=== PATIENT | female | born 1935 | race Caucasian/White ===

== ENCOUNTER → 2017-09-30 | Outpatient (CLI) | payer OTHER ==
[~2017-09-30] MED LIST: ATENOLOL25 MG PO; VITAMIN B1250 MCG PO; VITAMIN D-32000 UNI1 PO
== END ==
LOC: RAD 12:51
DX: M25.561 Pain in right knee (principal); R29.6 Repeated falls; R25.2 Cramp and spasm

== ENCOUNTER → 2019-03-25 | Outpatient (CLI) | payer OTHER ==
[2019-03-25 14:56] LABS: HEMATOCRIT 43.5 % (37.0-47.0); HEMOGLOBIN 14.7 g/dl (12.0-16.0); MEAN CELL VOLUME 91.4 fl (81.0-99.0); MEAN CORPUSCULAR HGB 30.9 pg (27.0-31.0); MEAN CORPUSCULAR HGB CONC 33.8 g/dl (33.0-37.0); MEAN PLATELET VOLUME 10.9 fl (9.6-12.3); RED BLOOD COUNT 4.76 10*6/uL (4.10-5.10); RED CELL DISTRI WIDTH 12.6 % (0-14.5); WHITE BLOOD COUNT 7.7 10*3/uL (4.8-10.8)
[2019-03-25 15:15] LABS: ALBUMIN 3.6 gm/dl (3.1-4.5); CREATININE 1.1 mg/dL (0.55-1.02); POTASSIUM 3.5 mmol/L (3.5-5.1); TOTAL PROTEIN 7.4 gm/dL (6.4-8.2)
[2019-03-25 15:39] LABS: VITAMIN D, 25-HYDROXY 26.6 ng/mL (30-100)
== END | disposition home or self-care (01) ==
LOC: LAB 13:53
PROVIDERS: Family Medicine
DX: Z13.220 Encounter for screening for lipoid disorders (principal); I10 Essential (primary) hypertension; E55.9 Vitamin D deficiency, unspecified; R53.83 Other fatigue

== ENCOUNTER → 2019-06-03 | Outpatient (CLI) | payer OTHER | END | disposition home or self-care (01) | LOC: MAMMO 09:04 | DX: Z12.31 Encounter for screening mammogram for malignant neoplasm of breast (principal) ==

== ENCOUNTER → 2019-06-25 | Outpatient (CLI) | payer OTHER ==
[2019-06-25 11:33] LABS: HEMATOCRIT 46.6 % (37.0-47.0); HEMOGLOBIN 15.4 g/dl (12.0-16.0); MEAN CORPUSCULAR HGB 30.1 pg (27.0-31.0); RED BLOOD COUNT 5.12 10*6/uL (4.10-5.10); RED CELL DISTRI WIDTH 12.5 % (0-14.5); WHITE BLOOD COUNT 7.3 10*3/uL (4.8-10.8)
[2019-06-25 11:58] LABS: ALBUMIN 3.9 gm/dl (3.1-4.5); CREATININE 1.12 mg/dL (0.55-1.02); POTASSIUM 3.9 mmol/L (3.5-5.1); TOTAL PROTEIN 7.5 gm/dL (6.4-8.2)
== END | disposition home or self-care (01) ==
LOC: LAB 10:39
PROVIDERS: Nurse Practitioner Family
DX: I12.9 Hypertensive chronic kidney disease with stage 1 through stage 4 chronic kidney disease, or unspecified chronic kidney disease (principal); N18.3 Chronic kidney disease, stage 3 (moderate); E78.00 Pure hypercholesterolemia, unspecified; E55.9 Vitamin D deficiency, unspecified

== ENCOUNTER → 2019-06-29 | Outpatient (CLI) | payer OTHER | END | disposition home or self-care (01) | LOC: MAMMO 12:58 | DX: N63.22 Unspecified lump in the left breast, upper inner quadrant (principal) ==

== ENCOUNTER → 2019-07-08 | Day surgery (SDC) | payer OTHER ==
[2019-07-08 10:24] LABS: ACT PARTIAL THROMBO TIME 27.3 SECONDS (20.0-32.1); INTERNATIONAL NORM RATIO 0.9 (2.0-3.5)
== END | disposition home or self-care (01) ==
LOC: SDC 00:09 → RAD 11:00 → SDC 11:00 → US 11:00 → SDC 13:00
PROVIDERS: Nurse Practitioner Family
DX: C50.412 Malignant neoplasm of upper-outer quadrant of left female breast (principal)

== ENCOUNTER → 2020-05-24 | Outpatient (CLI) | payer OTHER ==
[2020-05-24 13:11] LABS: HEMATOCRIT 46.3 % (37.0-47.0); MEAN CELL VOLUME 89.9 fl (81.0-99.0); MEAN CORPUSCULAR HGB 29.7 pg (27.0-31.0); MEAN PLATELET VOLUME 10.3 fl (9.6-12.3); RED BLOOD COUNT 5.15 10*6/uL (4.10-5.10); RED CELL DISTRI WIDTH 12.6 % (0-14.5)
[2020-05-24 13:29] LABS: ALBUMIN 3.7 gm/dl (3.1-4.5); CREATININE 1.18 mg/dL (0.55-1.02); POTASSIUM 3.9 mmol/L (3.5-5.1); TOTAL PROTEIN 7.5 gm/dL (6.4-8.2)
[2020-05-24 13:36] LABS: THYROID STIM HORMONE (HS) 3.4 uIU/ml (0.358-4.75)
[2020-05-24 14:38] LABS: VITAMIN D, 25-HYDROXY 15.2 ng/mL (30-100)
== END | disposition home or self-care (01) ==
LOC: LAB 12:13
PROVIDERS: ATTEND Family Medicine
DX: Z13.220 Encounter for screening for lipoid disorders (principal); I10 Essential (primary) hypertension; E55.9 Vitamin D deficiency, unspecified; R53.83 Other fatigue; R41.3 Other amnesia; C50.919 Malignant neoplasm of unspecified site of unspecified female breast

== ENCOUNTER → 2020-09-20 | Outpatient (CLI) | payer OTHER ==
[2020-09-20 12:06] LABS: HEMATOCRIT 44.9 % (37.0-47.0); MEAN CELL VOLUME 90.7 fl (81.0-99.0); MEAN CORPUSCULAR HGB 30.3 pg (27.0-31.0); MEAN CORPUSCULAR HGB CONC 33.4 g/dl (33.0-37.0); MEAN PLATELET VOLUME 10.2 fl (9.6-12.3); RED BLOOD COUNT 4.95 10*6/uL (4.10-5.10); RED CELL DISTRI WIDTH 13.2 % (0-14.5); WHITE BLOOD COUNT 7.8 10*3/uL (4.8-10.8)
[2020-09-20 12:37] LABS: ALBUMIN 3.4 gm/dl (3.1-4.5); CREATININE 1.12 mg/dL (0.55-1.02)
[2020-09-20 12:38] LABS: TOTAL PROTEIN 7.3 gm/dL (6.4-8.2)
== END | disposition home or self-care (01) ==
LOC: LAB 11:43
PROVIDERS: ATTEND Family Medicine
DX: I10 Essential (primary) hypertension (principal); E74.9 Disorder of carbohydrate metabolism, unspecified; E78.00 Pure hypercholesterolemia, unspecified; E55.9 Vitamin D deficiency, unspecified; Z79.899 Other long term (current) drug therapy; J02.8 Acute pharyngitis due to other specified organisms

== ENCOUNTER → 2021-02-02 | Outpatient (CLI) | payer OTHER ==
[2021-02-02 12:41] LABS: HEMATOCRIT 46.1 % (37.0-47.0); MEAN CORPUSCULAR HGB 30.7 pg (27.0-31.0); MEAN CORPUSCULAR HGB CONC 33.4 g/dl (33.0-37.0); MEAN PLATELET VOLUME 10.9 fl (9.6-12.3); RED BLOOD COUNT 5.01 10*6/uL (4.10-5.10); WHITE BLOOD COUNT 8.2 10*3/uL (4.8-10.8)
[2021-02-02 12:57] LABS: ALBUMIN 3.7 gm/dl (3.1-4.5); ALKALINE PHOSPHATASE 53 U/L (45-117); BUN 11 mg/dl (7-24); CHLORIDE 107 mmol/L (98-107); CHOLESTEROL 229 mg/dL (<200); LDL CHOLESTEROL 122 mg/dL (9-159); POTASSIUM 3.8 mmol/L (3.5-5.1); SGOT/AST 13 IU/L (3-35); SGPT/ALT 18 U/L (12-78); SODIUM 141 mmol/L (136-145); TOTAL PROTEIN 7.4 gm/dL (6.4-8.2); TRIGLYCERIDES 126 mg/dl (<150)
== END | disposition home or self-care (01) ==
LOC: LAB 12:00
PROVIDERS: ATTEND Family Medicine
DX: E78.00 Pure hypercholesterolemia, unspecified (principal); I10 Essential (primary) hypertension; E74.9 Disorder of carbohydrate metabolism, unspecified; Z79.899 Other long term (current) drug therapy

== ENCOUNTER → 2021-04-24 | Outpatient (CLI) | payer OTHER | END | disposition home or self-care (01) | LOC: RAD 15:59 | PROVIDERS: ATTEND Family Medicine | DX: M25.562 Pain in left knee (principal) ==

== ENCOUNTER → 2021-08-24 | Outpatient (CLI) | payer MEDICARE ==
[2021-08-24 10:04] LABS: HEMATOCRIT 45.5 % (37.0-47.0); MEAN CELL VOLUME 89.9 fl (81.0-99.0); MEAN CORPUSCULAR HGB 30.8 pg (27.0-31.0); MEAN CORPUSCULAR HGB CONC 34.3 g/dl (33.0-37.0); MEAN PLATELET VOLUME 10.3 fl (9.6-12.3); RED BLOOD COUNT 5.06 10*6/uL (4.10-5.10); WHITE BLOOD COUNT 7.4 10*3/uL (4.8-10.8)
[2021-08-24 10:34] LABS: BUN 14 mg/dl (7-24); CHLORIDE 106 mmol/L (98-107); CHOLESTEROL 227 mg/dL (<200); CREATININE 1.01 mg/dL (0.55-1.02); POTASSIUM 4.1 mmol/L (3.5-5.1); SGOT/AST 16 IU/L (3-35); SGPT/ALT 15 U/L (12-78); SODIUM 140 mmol/L (136-145)
[2021-08-24 10:41] LABS: ALKALINE PHOSPHATASE 50 U/L (45-117); FREE T4 1.06 ng/dl (0.76-1.46); LDL CHOLESTEROL 129 mg/dL (9-159); TOTAL PROTEIN 7.5 gm/dL (6.4-8.2); TRIGLYCERIDES 121 mg/dl (<150)
[2021-08-24 11:08] LABS: VITAMIN D, 25-HYDROXY 15.6 ng/mL (30-100)
[2021-08-25 04:06] LABS: HEP B CORE AB, IGM Negative (Negative); HEPATITIS B SURFACE AG Negative (Negative); HEPATITIS C VIRUS ANTIBODY <0.1 s/co (0.0-0.9)
== END | disposition home or self-care (01) ==
LOC: LAB 09:23
PROVIDERS: ATTEND Family Medicine
DX: E55.9 Vitamin D deficiency, unspecified (principal); R41.3 Other amnesia; Z79.899 Other long term (current) drug therapy; R53.83 Other fatigue

== ENCOUNTER → 2022-08-09 | Outpatient (CLI) | payer MEDICARE ==
[2022-08-09 08:50] LABS: HEMATOCRIT 45.2 % (37.0-47.0); MEAN CELL VOLUME 89.7 fl (81.0-99.0); MEAN CORPUSCULAR HGB 30.6 pg (27.0-31.0); MEAN CORPUSCULAR HGB CONC 34.1 g/dl (33.0-37.0); MEAN PLATELET VOLUME 10.3 fl (9.6-12.3); RED BLOOD COUNT 5.04 10*6/uL (4.10-5.10); RED CELL DISTRI WIDTH 12.9 % (0-14.5); WHITE BLOOD COUNT 7.7 10*3/uL (4.8-10.8)
[2022-08-09 09:21] LABS: POTASSIUM 3.9 mmol/L (3.4-5.1); TOTAL PROTEIN 6.9 gm/dL (6.0-8.0)
[2022-08-09 10:00] LABS: VITAMIN D, 25-HYDROXY 15.6 ng/mL (30-100)
== END | disposition home or self-care (01) ==
LOC: LAB 08:33
PROVIDERS: ATTEND Family Medicine
DX: I10 Essential (primary) hypertension (principal); E55.9 Vitamin D deficiency, unspecified; R53.83 Other fatigue

== ENCOUNTER → 2022-09-03 | Outpatient (CLI) | payer MEDICARE | END | disposition home or self-care (01) | LOC: MAMMO 13:59 | PROVIDERS: ATTEND Family Medicine | DX: N64.4 Mastodynia (principal); R92.2 Inconclusive mammogram; N64.9 Disorder of breast, unspecified; Z85.3 Personal history of malignant neoplasm of breast; R92.8 Other abnormal and inconclusive findings on diagnostic imaging of breast ==

== ENCOUNTER → 2023-06-13 | Outpatient (CLI) | payer MEDICARE ==
[2023-06-13 09:01] LABS: HEMATOCRIT 44.8 % (37.0-47.0); MEAN CELL VOLUME 90.7 fl (81.0-99.0); MEAN CORPUSCULAR HGB 30.2 pg (27.0-31.0); MEAN CORPUSCULAR HGB CONC 33.3 g/dl (33.0-37.0); MEAN PLATELET VOLUME 10.4 fl (9.6-12.3); RED BLOOD COUNT 4.94 10*6/uL (4.10-5.10); WHITE BLOOD COUNT 8.6 10*3/uL (4.8-10.8)
[2023-06-13 09:26] LABS: ALKALINE PHOSPHATASE 56 U/L (46-116); BUN 8 mg/dl (9-23); CHLORIDE 106 mmol/L (98-107); CHOLESTEROL 209 mg/dL (<200); FREE T4 1.23 ng/dl (0.89-1.76); LDL CHOLESTEROL 112 mg/dL (9-159); POTASSIUM 3.5 mmol/L (3.4-5.1); TOTAL PROTEIN 6.9 gm/dL (6.0-8.0); TRIGLYCERIDES 103 mg/dl (<150)
[2023-06-13 09:30] LABS: SGPT/ALT < 7 U/L (5-49)
[2023-06-13 09:42] LABS: VITAMIN D, 25-HYDROXY 14.4 ng/mL (30-100)
[2023-06-14 08:09] LABS: HBSAG Negative (Negative); HEP B CORE AB, IGM Negative (Negative); HEPATITIS C ANTIBODY Non Reactive (Non Reactive)
== END | disposition home or self-care (01) ==
LOC: LAB 08:24
PROVIDERS: ATTEND Family Medicine
DX: I10 Essential (primary) hypertension (principal); E78.00 Pure hypercholesterolemia, unspecified; R53.83 Other fatigue; E55.9 Vitamin D deficiency, unspecified; R41.82 Altered mental status, unspecified; F17.200 Nicotine dependence, unspecified, uncomplicated; R44.3 Hallucinations, unspecified; Z85.3 Personal history of malignant neoplasm of breast

== ENCOUNTER 2023-12-04 13:00 | Inpatient (IN) | payer MEDICARE ==
[~2023-12-04] VITALS: Ht 157.5 cm; Wt 54.4 kg
[~2023-12-04 13:00] MED LIST changes: +LOSARTAN POTASS25 M1 PO; +MIRTAZAPINE15 M2 PO; +RIVASTIGMINE1 EACH T
[2023-12-05] MEDS ORDERED: LORazepam 1 MG TAB PO PRN (09:40)
[2023-12-05] MEDS ORDERED: hydrOXYzine pamoate 25 MG CAP PO PRN (09:40)
[2023-12-05] MEDS ORDERED: LORazepam 2 MG/ML VIAL IM PRN (09:40)
[2023-12-05] MEDS ORDERED: hydrOXYzine hydrochloride 50 MG/ML VIAL IM PRN (09:40)
[2023-12-05] MEDS ORDERED: ACETAMINOPHEN 325 MG TAB PO PRN (10:15)
[2023-12-05] MEDS ORDERED: MG-AL HYDROXIDE/SIMETICONE 30 ML UDC PO PRN (10:15)
[2023-12-05] MEDS ORDERED: Magnesium Hydroxide 30 ML UDC PO PRN (10:15)
[2023-12-05] MEDS ORDERED: Menthol/Zinc Oxide 4 GM THIN T PRN (10:20)
[2023-12-05] MEDS ORDERED: Water, Sterile 10 ML VIAL IM PRN (12:00)
[2023-12-05] MEDS ORDERED: Ziprasidone Mesylate 20 MG VIAL IM PRN (12:00)
[2023-12-05] MEDS ORDERED: Losartan Potassium 25 MG TAB PO SCH (14:45)
[2023-12-05 15:00] VITALS: BP 170/49
[2023-12-05 20:00] VITALS: BP 144/77
[2023-12-05] MEDS ORDERED: Mirtazapine 15 MG TAB PO SCH (21:00)
[2023-12-05] MEDS ORDERED: Memantine Hydrochloride 5 MG TAB PO SCH ×2 (21:00)
[2023-12-06 05:53] LABS: BUN 10 mg/dl (9-23); CHLORIDE 110 mmol/L (98-107)
[2023-12-06 08:00] VITALS: BP 218/76
[2023-12-06] MEDS ORDERED: RIVASTIGMINE 13.3 MG/24 HR TDM T SCH (09:00)
[2023-12-06] MEDS ORDERED: Rivastigmine Tartrate 9.5 MG/24 HR PATCH T SCH (09:00)
[2023-12-06 09:13] LABS: BILIRUBIN Negative (Negative); BLOOD Negative (Negative); CLARITY Clear (Clear); COLOR Yellow (Yellow); GLUCOSE Negative (Negative); KETONE Negative (Negative); LEUKO ESTERASE Trace (Negative); NITRITE Negative (Negative); PH 6.5 (4.5-8.0); SPECIFIC GRAVITY 1.015 (1.001-1.030); UROBILINOGEN 0.2 E.U./dl (0.0-1.0)
[2023-12-06 09:47] LABS: CALCIUM OXALATE CRYSTALS 2+; EPITHELIAL CELLS 0-2; RBC 0-2 rbc/hpf (0-2)
[2023-12-06 20:00] VITALS: BP 150/80
[2023-12-06] MEDS ORDERED: Memantine Hydrochloride 10 MG TAB PO SCH (21:00)
[2023-12-06] MEDS ORDERED: RAMELTEON 8 MG TAB PO SCH (21:00)
[2023-12-07 08:03] VITALS: BP 171/77
[2023-12-07 12:26] VITALS: BP 146/56
[2023-12-07] MEDS ORDERED: hydrOXYzine pamoate 25 MG CAP PO SCH (13:00)
[2023-12-07 20:00] VITALS: BP 146/56
[2023-12-08 07:55] VITALS: BP 132/59
[2023-12-08 19:17] VITALS: BP 147/62
[2023-12-09 07:56] VITALS: BP 165/76
[2023-12-09 08:07] VITALS: BP 170/70
[2023-12-09 08:50] VITALS: BP 190/90
[2023-12-09 09:50] VITALS: BP 182/76
[2023-12-09] MEDS ORDERED: RISPERIDONE 0.5 MG TAB PO ONE (10:25)
[2023-12-09 10:38] VITALS: BP 180/70
[2023-12-09] MEDS ORDERED: cloNIDine Hydrochloride 0.1 MG TAB PO ONE (11:00)
[2023-12-09 14:08] VITALS: BP 138/61
[2023-12-09] MEDS ORDERED: RISPERIDONE 0.5 MG TAB PO SCH (21:00)
[2023-12-10 07:53] VITALS: BP 126/50
[2023-12-10] MEDS ORDERED: Losartan Potassium 50 MG TAB PO SCH (09:00)
[2023-12-10 20:00] VITALS: BP 130/64
[2023-12-11 08:00] VITALS: BP 164/81
[2023-12-11 20:00] VITALS: BP 155/51
[2023-12-12 20:00] VITALS: BP 150/52
[2023-12-13 07:05] LABS: BASO # 0.1 10*3/uL (0.0-0.1); BASO % 1.3 % (0.0-1.0); EOS # 0.3 10*3/uL (0.0-0.4); EOS % 3.3 % (1.0-4.0); HEMATOCRIT 40.5 % (37.0-47.0); LYMPH # 2.8 10*3/uL (1.3-4.4); LYMPH % 36.2 % (27.0-41.0); MEAN CELL VOLUME 93.3 fl (81.0-99.0); MEAN CORPUSCULAR HGB 30.9 pg (27.0-31.0); MEAN CORPUSCULAR HGB CONC 33.1 g/dl (33.0-37.0); MEAN PLATELET VOLUME 10.6 fl (9.6-12.3); MONO # 0.9 10*3/uL (0.1-1.0); MONO % 11.8 % (3.0-9.0); NEUT # 3.6 10*3/uL (2.3-7.9); NEUT % 46.9 % (47.0-73.0); PLATELET COUNT AUTOMATED 247 10*3/uL (130-400); RED BLOOD COUNT 4.34 10*6/uL (4.10-5.10); RED CELL DISTRI WIDTH 13.2 % (0-14.5); WHITE BLOOD COUNT 7.6 10*3/uL (4.8-10.8)
[2023-12-13 08:00] VITALS: BP 189/57
[2023-12-13 08:40] LABS: POTASSIUM 4.2 mmol/L (3.4-5.1); TOTAL PROTEIN 5.9 gm/dL (6.0-8.0)
[2023-12-13 15:48] LABS: BILIRUBIN Negative (Negative); BLOOD Negative (Negative); CLARITY Clear (Clear); COLOR Yellow (Yellow); GLUCOSE Negative (Negative); KETONE Negative (Negative); LEUKO ESTERASE 2+ (Negative); NITRITE Negative (Negative); SPECIFIC GRAVITY 1.015 (1.001-1.030); UROBILINOGEN 0.2 E.U./dl (0.0-1.0)
[2023-12-13 16:13] LABS: BACTERIA TRACE
[2023-12-13 20:00] VITALS: BP 186/62
[2023-12-13] MEDS ORDERED: amLODIPine besylate 5 MG TAB PO SCH (22:00)
[2023-12-14 07:49] VITALS: BP 139/56
[2023-12-14 20:00] VITALS: BP 170/79
[2023-12-15 08:00] VITALS: BP 100/58
[2023-12-15 08:04] LABS: BASO # 0.1 10*3/uL (0.0-0.1); BASO % 1.2 % (0.0-1.0); EOS # 0.2 10*3/uL (0.0-0.4); EOS % 1.7 % (1.0-4.0); HEMATOCRIT 39.7 % (37.0-47.0); LYMPH # 2.8 10*3/uL (1.3-4.4); LYMPH % 29.8 % (27.0-41.0); MEAN CELL VOLUME 92.3 fl (81.0-99.0); MEAN CORPUSCULAR HGB 31.2 pg (27.0-31.0); MEAN CORPUSCULAR HGB CONC 33.8 g/dl (33.0-37.0); MEAN PLATELET VOLUME 10.9 fl (9.6-12.3); MONO % 10.6 % (3.0-9.0); NEUT # 5.2 10*3/uL (2.3-7.9); NEUT % 56.2 % (47.0-73.0); PLATELET COUNT AUTOMATED 261 10*3/uL (130-400); RED CELL DISTRI WIDTH 13.2 % (0-14.5); WHITE BLOOD COUNT 9.3 10*3/uL (4.8-10.8)
[2023-12-15 08:24] LABS: POTASSIUM 4.1 mmol/L (3.4-5.1); TOTAL PROTEIN 6.3 gm/dL (6.0-8.0)
[2023-12-15 08:34] VITALS: BP 128/59
[2023-12-15] MEDS ORDERED: ASPIRIN ENTERIC COATED 81 MG TAB PO ONE (10:40)
[2023-12-15 10:57] VITALS: BP 114/47
[2023-12-15] MEDS ORDERED: CEPHALEXIN 250 MG CAP PO SCH (12:00)
[2023-12-15] MEDS ORDERED: RISPERIDONE 1 MG TAB PO SCH (17:00)
[2023-12-15 20:00] VITALS: BP 145/52
[2023-12-15] MEDS ORDERED: Metoprolol Tartrate 25 MG TAB PO SCH (21:00)
[2023-12-16 08:00] VITALS: BP 155/63
[2023-12-16] MEDS ORDERED: ATORVASTATIN CALCIUM 40 MG TABLET PO SCH (09:00)
[2023-12-16 20:00] VITALS: BP 153/52
[2023-12-17 20:00] VITALS: BP 169/55
[2023-12-18 08:28] VITALS: BP 114/53
[2023-12-18] MEDS ORDERED: Mirtazapine 15 MG TAB PO SCH (17:00)
[2023-12-18 20:00] VITALS: BP 98/42
[2023-12-19 06:28] LABS: BASO # 0.1 10*3/uL (0.0-0.1); BASO % 1.3 % (0.0-1.0); EOS # 0.3 10*3/uL (0.0-0.4); EOS % 3.1 % (1.0-4.0); HEMATOCRIT 38.5 % (37.0-47.0); LYMPH # 2.4 10*3/uL (1.3-4.4); LYMPH % 27.3 % (27.0-41.0); MEAN CELL VOLUME 91.2 fl (81.0-99.0); MEAN CORPUSCULAR HGB 31.5 pg (27.0-31.0); MEAN CORPUSCULAR HGB CONC 34.5 g/dl (33.0-37.0); MEAN PLATELET VOLUME 11.4 fl (9.6-12.3); MONO # 1.3 10*3/uL (0.1-1.0); MONO % 14.7 % (3.0-9.0); NEUT # 4.7 10*3/uL (2.3-7.9); NEUT % 53.1 % (47.0-73.0); PLATELET COUNT AUTOMATED 210 10*3/uL (130-400); RED BLOOD COUNT 4.22 10*6/uL (4.10-5.10); RED CELL DISTRI WIDTH 13.2 % (0-14.5); WHITE BLOOD COUNT 8.8 10*3/uL (4.8-10.8)
[2023-12-19 06:34] LABS: ALKALINE PHOSPHATASE 46 U/L (46-116); BUN 28 mg/dl (9-23); CHLORIDE 106 mmol/L (98-107); POTASSIUM 4.3 mmol/L (3.4-5.1); TOTAL PROTEIN 5.8 gm/dL (6.0-8.0)
[2023-12-19 06:36] LABS: SGPT/ALT < 7 U/L (5-49)
[2023-12-19 20:00] VITALS: BP 154/60
[2023-12-20 07:55] VITALS: BP 192/62
[2023-12-20 19:20] VITALS: BP 154/55
[2023-12-20] MEDS ORDERED: RAMELTEON 8 MG TAB PO SCH (21:00)
[2023-12-21 09:30] VITALS: BP 125/56
[2023-12-21 14:14] LABS: BILIRUBIN Negative (Negative); BLOOD Negative (Negative); CLARITY Clear (Clear); COLOR Yellow (Yellow); GLUCOSE Negative (Negative); KETONE Negative (Negative); LEUKO ESTERASE 1+ (Negative); NITRITE Negative (Negative); PH 5.5 (4.5-8.0); UROBILINOGEN 0.2 E.U./dl (0.0-1.0)
[2023-12-21 14:33] LABS: BACTERIA 1+; CALCIUM OXALATE CRYSTALS 1+
[2023-12-21 20:00] VITALS: BP 101/47
[2023-12-22 07:51] VITALS: BP 131/47
[2023-12-22 20:00] VITALS: BP 148/54
[2023-12-23 07:15] LABS: POTASSIUM 3.7 mmol/L (3.4-5.1)
[2023-12-23 08:00] VITALS: BP 128/69
[2023-12-23 20:00] VITALS: BP 132/65
[2023-12-24 08:16] VITALS: BP 111/81
[2023-12-24] MEDS ORDERED: MIRTAZAPINE15 M2 PO (08:51)
[2023-12-24] MEDS ORDERED: RIVASTIGMINE1 EAC2 T (08:51)
[2023-12-24] MEDS ORDERED: RISPERDAL1 M1 PO (08:51)
[2023-12-24] MEDS ORDERED: RAMELTEON8 MG PO (08:51)
[2023-12-24] MEDS ORDERED: MEMANTINE HCL10 MG PO (08:51)
[2023-12-24] MEDS ORDERED: LOPRESSOR25 MG PO (10:58)
[2023-12-24] MEDS ORDERED: AMLODIPINE BESYL5 MG PO (10:58)
[2023-12-24] MEDS ORDERED: ATORVASTATIN CA40 M1 PO (10:58)
== END 2023-12-24 13:30 | DRG 885 ==
LOC: 3N 13:00
PROVIDERS: Counselor Professional; Internal Medicine; Nurse Practitioner; Registered Nurse; Student in an Organized Health Care Education/Training Program; ADMIT Psychiatry & Neurology Psychiatry; ATTEND Psychiatry & Neurology Psychiatry
PROC: GZHZZZZ Group Psychotherapy (ICD-10-PCS; principal; 2023-12-08)
PROC: GZ51ZZZ Individual Psychotherapy, Behavioral (ICD-10-PCS; 2023-12-08)
PROC: GZ56ZZZ Individual Psychotherapy, Supportive (ICD-10-PCS; 2023-12-08)
DX: F23 Brief psychotic disorder (principal); N18.31 Chronic kidney disease, stage 3a; G93.41 Metabolic encephalopathy; N39.0 Urinary tract infection, site not specified; E44.0 Moderate protein-calorie malnutrition; I12.9 Hypertensive chronic kidney disease with stage 1 through stage 4 chronic kidney disease, or unspecified chronic kidney disease; S81.811A Laceration without foreign body, right lower leg, initial encounter; X58.XXXA Exposure to other specified factors, initial encounter; F03.90 Unspecified dementia, unspecified severity, without behavioral disturbance, psychotic disturbance, mood disturbance, and anxiety; Z66 Do not resuscitate; Z51.5 Encounter for palliative care; Z80.1 Family history of malignant neoplasm of trachea, bronchus and lung; Z88.2 Allergy status to sulfonamides; Y93.89 Activity, other specified; Y92.89 Other specified places as the place of occurrence of the external cause; Y99.8 Other external cause status; Z68.20 Body mass index [BMI] 20.0-20.9, adult

== ENCOUNTER 2023-12-26 17:42 | Inpatient (IN) | payer MEDICARE ==
[~2023-12-26] VITALS: Ht 162.5 cm; Wt 51.3 kg
[~2023-12-26 17:42] MED LIST changes: +AMLODIPINE BESYL5 MG PO; +ATORVASTATIN CA40 M1 PO; +LOPRESSOR25 MG PO; +MEMANTINE HCL10 MG PO; +RAMELTEON8 MG PO; +RISPERDAL1 M1 PO; +RIVASTIGMINE1 EAC2 T
[2023-12-26] MEDS ORDERED: MIRTAZAPINE15 M2 PO (18:30)
[2023-12-27 08:00] VITALS: BP 129/65
[2023-12-27] MEDS ORDERED: MG-AL HYDROXIDE/SIMETICONE 30 ML UDC PO PRN (08:50)
[2023-12-27] MEDS ORDERED: Ziprasidone Mesylate 20 MG VIAL IM PRN (08:50)
[2023-12-27] MEDS ORDERED: LORazepam 2 MG/ML VIAL IM PRN (08:50)
[2023-12-27] MEDS ORDERED: Magnesium Hydroxide 30 ML UDC PO PRN (08:50)
[2023-12-27] MEDS ORDERED: LORazepam 1 MG TAB PO PRN (08:50)
[2023-12-27] MEDS ORDERED: ACETAMINOPHEN 325 MG TAB PO PRN (08:50)
[2023-12-27] MEDS ORDERED: Memantine Hydrochloride 10 MG TAB PO SCH (09:00)
[2023-12-27] MEDS ORDERED: RIVASTIGMINE 13.3 MG/24 HR TDM T SCH (09:00)
[2023-12-27] MEDS ORDERED: Fosfomycin Tromethamine 3 GM PDS PO SCH (10:05)
[2023-12-27] MEDS ORDERED: SODIUM CHLORIDE 0.9% 1,000 ML IV ONE (19:45)
[2023-12-27 20:00] VITALS: BP 80/40
[2023-12-27] MEDS ORDERED: RAMELTEON 8 MG TAB PO SCH (21:00)
[2023-12-27] MEDS ORDERED: Metoprolol Tartrate 25 MG TAB PO SCH (21:00)
[2023-12-27] MEDS ORDERED: BREXPIPRAZOLE 1 MG TABLET PO SCH (21:00)
[2023-12-27 21:55] VITALS: BP 143/53
[2023-12-27] MEDS ORDERED: amLODIPine besylate 5 MG TAB PO SCH (22:00)
[2023-12-27] MEDS ORDERED: Mirtazapine 15 MG TAB PO SCH (22:00)
[2023-12-28 07:32] LABS: VITAMIN D, 25-HYDROXY 34.4 ng/mL (30-100)
[2023-12-28 08:32] VITALS: BP 164/80
[2023-12-28] MEDS ORDERED: ATORVASTATIN CALCIUM 40 MG TABLET PO SCH (09:00)
[2023-12-28 19:15] VITALS: BP 120/43
[2023-12-28 20:33] VITALS: BP 140/56
[2023-12-29 08:00] VITALS: BP 152/57
[2023-12-29 18:56] VITALS: BP 177/74
[2023-12-30] MEDS ORDERED: REXULTI1 MG PO (07:36)
[2023-12-30 08:00] VITALS: BP 139/56
[2023-12-30] MEDS ORDERED: TRANEXAMIC ACID IV ONE (08:00)
[2023-12-30] MEDS ORDERED: SODIUM CHLORIDE 0.9% IV ONE (08:00)
[2023-12-30] MEDS ORDERED: Cholecalciferol 2,000 UNIT TABLET (50 MCG) PO SCH (10:00)
[2023-12-30] MEDS ORDERED: ceFAZolin sodium/sodium chlor 20 ML IV ONE (11:30)
== END 2023-12-30 08:09 | disposition short-term general hospital (02) | DRG 883 ==
LOC: 3N 17:42
PROVIDERS: ADMIT Psychiatry & Neurology Psychiatry; ATTEND Psychiatry & Neurology Psychiatry
PROC: GZHZZZZ Group Psychotherapy (ICD-10-PCS; principal; 2023-12-27)
PROC: GZ56ZZZ Individual Psychotherapy, Supportive (ICD-10-PCS; 2023-12-27)
DX: F63.81 Intermittent explosive disorder (principal); N18.30 Chronic kidney disease, stage 3 unspecified; G93.41 Metabolic encephalopathy; S72.142A Displaced intertrochanteric fracture of left femur, initial encounter for closed fracture; F23 Brief psychotic disorder; N39.0 Urinary tract infection, site not specified; Z16.12 Extended spectrum beta lactamase (ESBL) resistance; G30.9 Alzheimer's disease, unspecified; F02.80 Dementia in other diseases classified elsewhere, unspecified severity, without behavioral disturbance, psychotic disturbance, mood disturbance, and anxiety; Z66 Do not resuscitate; Z90.49 Acquired absence of other specified parts of digestive tract; Z80.1 Family history of malignant neoplasm of trachea, bronchus and lung; X58.XXXA Exposure to other specified factors, initial encounter; Y93.89 Activity, other specified; Y92.89 Other specified places as the place of occurrence of the external cause; Y99.8 Other external cause status

== ENCOUNTER 2023-12-30 08:08 | Inpatient (IN) | payer MEDICARE ==
[~2023-12-30] VITALS: Ht 160 cm; Wt 45.4 kg
[~2023-12-30 08:08] MED LIST changes: +REXULTI1 MG PO
[2023-12-30 08:11] VITALS: BP 139/56
[2023-12-30 08:44] LABS: BASO # 0.1 10*3/uL (0.0-0.1); BASO % 0.4 % (0.0-1.0); EOS % 0.1 % (1.0-4.0); HEMATOCRIT 36.9 % (37.0-47.0); LYMPH # 1.2 10*3/uL (1.3-4.4); LYMPH % 8.3 % (27.0-41.0); MEAN CELL VOLUME 92.5 fl (81.0-99.0); MEAN CORPUSCULAR HGB 30.8 pg (27.0-31.0); MEAN CORPUSCULAR HGB CONC 33.3 g/dl (33.0-37.0); MEAN PLATELET VOLUME 10.7 fl (9.6-12.3); MONO # 1.5 10*3/uL (0.1-1.0); MONO % 10.2 % (3.0-9.0); NEUT # 11.6 10*3/uL (2.3-7.9); NEUT % 80.4 % (47.0-73.0); PLATELET COUNT AUTOMATED 277 10*3/uL (130-400); RED BLOOD COUNT 3.99 10*6/uL (4.10-5.10); WHITE BLOOD COUNT 14.4 10*3/uL (4.8-10.8)
[2023-12-30] MEDS ORDERED: MORPHINE Sulfate 2 MG/ML SYR IV ONE (08:50)
[2023-12-30 09:06] LABS: ALKALINE PHOSPHATASE 53 U/L (46-116); BUN 8 mg/dl (9-23); CHLORIDE 109 mmol/L (98-107); POTASSIUM 3.7 mmol/L (3.4-5.1); SGPT/ALT 16 U/L (5-49); TOTAL PROTEIN 6.1 gm/dL (6.0-8.0)
[2023-12-30 09:07] LABS: BILIRUBIN Negative (Negative); BLOOD Negative (Negative); CLARITY Cloudy (Clear); COLOR Yellow (Yellow); GLUCOSE Negative (Negative); KETONE Trace (Negative); LEUKO ESTERASE Negative (Negative); NITRITE Negative (Negative); UROBILINOGEN 0.2 E.U./dl (0.0-1.0)
[2023-12-30 09:30] LABS: RBC 0-2 rbc/hpf (0-2); WBC 0-2 wbc/hpf (0-5)
[2023-12-30 09:31] LABS: CALCIUM OXALATE CRYSTALS 2+; MUCOUS 1+
[2023-12-30] MEDS ORDERED: Ketorolac Tromethamine 15 MG/ML VIAL IV PRN (10:50)
[2023-12-30 11:45] VITALS: BP 122/52
[2023-12-30] MEDS ORDERED: TRANEXAMIC ACID IN NACL,ISO-OS 100 ML IV ONE (12:20)
[2023-12-30 12:45] VITALS: BP 170/60
[2023-12-30 16:00] VITALS: BP 127/55
[2023-12-30] MEDS ORDERED: HEEL PROTECTOR DEVICE ONE (16:05)
[2023-12-30 20:00] VITALS: BP 128/58
[2023-12-30] MEDS ORDERED: RAMELTEON 8 MG TAB PO SCH (22:00)
[2023-12-30] MEDS ORDERED: amLODIPine besylate 5 MG TAB PO SCH (22:00)
[2023-12-30] MEDS ORDERED: BREXPIPRAZOLE 1 MG TABLET PO SCH (22:00)
[2023-12-30] MEDS ORDERED: Memantine Hydrochloride 10 MG TAB PO SCH (22:00)
[2023-12-30] MEDS ORDERED: Mirtazapine 15 MG TAB PO SCH (22:00)
[2023-12-31] VITALS (11 sets, daily range): BP systolic 119–194; BP diastolic 44–71
[2023-12-31 05:18] LABS: POTASSIUM 4.2 mmol/L (3.4-5.1)
[2023-12-31 06:23] LABS: BASO # 0.1 10*3/uL (0.0-0.1); BASO % 0.6 % (0.0-1.0); EOS # 0.1 10*3/uL (0.0-0.4); EOS % 1.5 % (1.0-4.0); HEMATOCRIT 32.6 % (37.0-47.0); LYMPH # 1.9 10*3/uL (1.3-4.4); LYMPH % 20.6 % (27.0-41.0); MEAN CELL VOLUME 92.1 fl (81.0-99.0); MEAN CORPUSCULAR HGB 31.1 pg (27.0-31.0); MEAN CORPUSCULAR HGB CONC 33.7 g/dl (33.0-37.0); MEAN PLATELET VOLUME 11.3 fl (9.6-12.3); MONO # 1.2 10*3/uL (0.1-1.0); MONO % 13.2 % (3.0-9.0); NEUT # 5.9 10*3/uL (2.3-7.9); NEUT % 63.6 % (47.0-73.0); PLATELET COUNT AUTOMATED 234 10*3/uL (130-400); RED BLOOD COUNT 3.54 10*6/uL (4.10-5.10); RED CELL DISTRI WIDTH 13.6 % (0-14.5); WHITE BLOOD COUNT 9.3 10*3/uL (4.8-10.8)
[2023-12-31] MEDS ORDERED: Lactated Ringer's Solution 1,000 ML IV ONE (07:20)
[2023-12-31] MEDS ORDERED: Bupivacaine Hydrochloride/Ep2 30 ML VIAL ONE ×2 (07:33→07:36)
[2023-12-31] MEDS ORDERED: ACETAMINOPHEN 100 ML IV ONE (07:36)
[2023-12-31] MEDS ORDERED: ceFAZolin sodium/sodium chlor 10 ML IV ONE (08:05)
[2023-12-31] MEDS ORDERED: TRANEXAMIC ACID IN NACL,ISO-OS 100 ML IV ONE ×2 (08:05→16:00)
[2023-12-31] MEDS ORDERED: HYDROmorphONE Hydrochloride 0.5 MG/0.5 ML SYRINGE IV PRN (09:20)
[2023-12-31] MEDS ORDERED: Ketorolac Tromethamine 30 MG/ML VIAL ONE (09:23)
[2023-12-31] MEDS ORDERED: HYDROmorphONE Hydrochloride 0.5 MG/0.5 ML SYRINGE ONE (09:45)
[2023-12-31] MEDS ORDERED: ASPIRIN ENTERIC COATED 81 MG TAB PO SCH (10:00)
[2023-12-31] MEDS ORDERED: RIVASTIGMINE 13.3 MG/24 HR TDM T SCH (10:00)
[2023-12-31] MEDS ORDERED: Cholecalciferol 2,000 UNIT TABLET (50 MCG) PO SCH (10:00)
[2023-12-31] MEDS ORDERED: Losartan Potassium 25 MG TAB PO SCH (10:00)
[2023-12-31] MEDS ORDERED: SODIUM CHLORIDE 0.9% 1,000 ML IV SCH (10:45)
[2023-12-31] MEDS ORDERED: ceFAZolin sodium 1 GM in SYRINGE INFUSION 10 ML IV SCH (14:00)
[2023-12-31] MEDS ORDERED: ceFAZolin sodium/sodium chlor 20 ML IV ONE (16:00)
[2023-12-31] MEDS ORDERED: Ondansetron Hydrochloride 4 MG/2 ML VIAL IV ONE (20:28)
[2023-12-31] MEDS ORDERED: Dexamethasone Sodium Phospha 4 MG/ML VIAL IV ONE (20:28)
[2023-12-31] MEDS ORDERED: PROPOFOL 200 MG/20 ML VIAL IV ONE (20:28)
[2023-12-31] MEDS ORDERED: Ketamine Hydrochloride 500 MG/10 ML VIAL IV ONE (20:28)
[2023-12-31] MEDS ORDERED: Lidocaine Hydrochloride 2% 5 ML SDV IM ONE (20:28)
[2023-12-31] MEDS ORDERED: SEVOFLURANE 250 ML BOT INH ONE (20:28)
[2023-12-31] MEDS ORDERED: Phenylephrine Hydrochloride 1 MG/10 ML SYRINGE IV ONE (20:28)
[2024-01-01] VITALS: BP 122/53
[2024-01-01 05:33] LABS: BUN 15 mg/dl (9-23); CHLORIDE 112 mmol/L (98-107); POTASSIUM 3.9 mmol/L (3.4-5.1)
[2024-01-01 06:21] LABS: HEMATOCRIT 28.7 % (37.0-47.0); MEAN CELL VOLUME 90.8 fl (81.0-99.0); MEAN CORPUSCULAR HGB CONC 35.2 g/dl (33.0-37.0); MEAN PLATELET VOLUME 11.6 fl (9.6-12.3); PLATELET COUNT AUTOMATED 211 10*3/uL (130-400); RED BLOOD COUNT 3.16 10*6/uL (4.10-5.10); RED CELL DISTRI WIDTH 13.2 % (0-14.5); WHITE BLOOD COUNT 15.8 10*3/uL (4.8-10.8)
[2024-01-01 06:24] LABS: MANUAL DIFF REFLEX YES
[2024-01-01 06:51] LABS: TOTAL CELLS COUNTED 100 #CELLS
[2024-01-01 06:52] LABS: OVALOCYTES FEW; PLATELET SUFFICIENCY NORMAL (NORMAL); POLYCHROMASIA SLIGHT
[2024-01-01 08:00] VITALS: BP 159/60
[2024-01-01 16:00] VITALS: BP 133/60
[2024-01-01] MEDS ORDERED: DIVALPROEX ER 500 MG TAB PO SCH (16:10)
[2024-01-01] MEDS ORDERED: LORazepam 2 MG/ML VIAL IV PRN (16:10)
[2024-01-01] MEDS ORDERED: LORazepam 2 MG/ML VIAL ONE (16:32)
[2024-01-01] MEDS ORDERED: Water, Sterile 10 ML VIAL ONE (16:32)
[2024-01-01 20:00] VITALS: BP 144/68
[2024-01-02] VITALS: BP 130/60
[2024-01-02 06:30] LABS: HEMATOCRIT 31.2 % (37.0-47.0); MEAN CELL VOLUME 91.8 fl (81.0-99.0); MEAN CORPUSCULAR HGB 32.1 pg (27.0-31.0); MEAN CORPUSCULAR HGB CONC 34.9 g/dl (33.0-37.0); MEAN PLATELET VOLUME 11.2 fl (9.6-12.3); PLATELET COUNT AUTOMATED 247 10*3/uL (130-400); RED CELL DISTRI WIDTH 13.3 % (0-14.5); WHITE BLOOD COUNT 11.2 10*3/uL (4.8-10.8)
[2024-01-02 06:31] LABS: MANUAL DIFF REFLEX YES
[2024-01-02 06:54] LABS: BUN 9 mg/dl (9-23); CHLORIDE 108 mmol/L (98-107); POTASSIUM 3.4 mmol/L (3.4-5.1)
[2024-01-02 08:00] LABS: BASOPHILS 2 % (0-1); PLATELET SUFFICIENCY NORMAL (NORMAL); TOTAL CELLS COUNTED 100 #CELLS
[2024-01-02 12:00] VITALS: BP 110/41
[2024-01-02 20:00] VITALS: BP 121/44
[2024-01-03 07:05] LABS: BASO # 0.1 10*3/uL (0.0-0.1); BASO % 0.9 % (0.0-1.0); EOS # 0.4 10*3/uL (0.0-0.4); EOS % 4.5 % (1.0-4.0); HEMATOCRIT 28.7 % (37.0-47.0); LYMPH # 1.9 10*3/uL (1.3-4.4); LYMPH % 21.4 % (27.0-41.0); MEAN CELL VOLUME 94.4 fl (81.0-99.0); MEAN CORPUSCULAR HGB 30.9 pg (27.0-31.0); MEAN CORPUSCULAR HGB CONC 32.8 g/dl (33.0-37.0); MEAN PLATELET VOLUME 10.7 fl (9.6-12.3); MONO # 1.1 10*3/uL (0.1-1.0); MONO % 12.3 % (3.0-9.0); NEUT # 5.5 10*3/uL (2.3-7.9); NEUT % 60.5 % (47.0-73.0); PLATELET COUNT AUTOMATED 225 10*3/uL (130-400); RED BLOOD COUNT 3.04 10*6/uL (4.10-5.10); RED CELL DISTRI WIDTH 13.5 % (0-14.5); WHITE BLOOD COUNT 9.1 10*3/uL (4.8-10.8)
[2024-01-03 08:00] VITALS: BP 170/52
[2024-01-03 12:00] VITALS: BP 167/65
[2024-01-03 16:00] VITALS: BP 152/48
[2024-01-03 20:00] VITALS: BP 156/47
[2024-01-04] VITALS: BP 173/47
[2024-01-04 06:43] LABS: BASO # 0.1 10*3/uL (0.0-0.1); BASO % 0.9 % (0.0-1.0); EOS # 0.4 10*3/uL (0.0-0.4); EOS % 4.5 % (1.0-4.0); HEMATOCRIT 32.1 % (37.0-47.0); LYMPH # 1.8 10*3/uL (1.3-4.4); LYMPH % 20.5 % (27.0-41.0); MEAN CELL VOLUME 93.6 fl (81.0-99.0); MEAN CORPUSCULAR HGB 30.6 pg (27.0-31.0); MEAN CORPUSCULAR HGB CONC 32.7 g/dl (33.0-37.0); MEAN PLATELET VOLUME 10.2 fl (9.6-12.3); MONO % 11.8 % (3.0-9.0); NEUT # 5.4 10*3/uL (2.3-7.9); NEUT % 61.7 % (47.0-73.0); PLATELET COUNT AUTOMATED 282 10*3/uL (130-400); RED BLOOD COUNT 3.43 10*6/uL (4.10-5.10); RED CELL DISTRI WIDTH 13.2 % (0-14.5); WHITE BLOOD COUNT 8.8 10*3/uL (4.8-10.8)
[2024-01-04 07:31] LABS: BUN 20 mg/dl (9-23); CHLORIDE 111 mmol/L (98-107); POTASSIUM 3.6 mmol/L (3.4-5.1)
[2024-01-04] MEDS ORDERED: Losartan Potassium 50 MG TAB PO SCH (10:00)
[2024-01-04 12:00] VITALS: BP 148/45
[2024-01-04 16:00] VITALS: BP 155/59
[2024-01-04 20:00] VITALS: BP 167/65
[2024-01-05] VITALS: BP 138/54
[2024-01-05 06:10] LABS: BASO # 0.1 10*3/uL (0.0-0.1); BASO % 0.7 % (0.0-1.0); EOS # 0.2 10*3/uL (0.0-0.4); EOS % 1.9 % (1.0-4.0); HEMATOCRIT 33.4 % (37.0-47.0); LYMPH # 1.8 10*3/uL (1.3-4.4); LYMPH % 16.1 % (27.0-41.0); MEAN CORPUSCULAR HGB 30.6 pg (27.0-31.0); MEAN CORPUSCULAR HGB CONC 33.2 g/dl (33.0-37.0); MEAN PLATELET VOLUME 10.9 fl (9.6-12.3); MONO # 1.4 10*3/uL (0.1-1.0); MONO % 12.4 % (3.0-9.0); NEUT # 7.6 10*3/uL (2.3-7.9); NEUT % 67.9 % (47.0-73.0); PLATELET COUNT AUTOMATED 365 10*3/uL (130-400); RED BLOOD COUNT 3.63 10*6/uL (4.10-5.10); RED CELL DISTRI WIDTH 13.2 % (0-14.5); WHITE BLOOD COUNT 11.2 10*3/uL (4.8-10.8)
[2024-01-05 08:00] VITALS: BP 168/86
[2024-01-05 12:00] VITALS: BP 147/62
[2024-01-05 15:57] VITALS: BP 169/68
[2024-01-06] VITALS: BP 139/69
[2024-01-06 08:00] VITALS: BP 155/78
[2024-01-06 16:00] VITALS: BP 130/68
[2024-01-06 20:00] VITALS: BP 124/58
[2024-01-07] VITALS: BP 137/41
[2024-01-07 08:00] VITALS: BP 147/50
[2024-01-07] MEDS ORDERED: DIVALPROEX SOD500 M1 PO (08:33)
[2024-01-07] MEDS ORDERED: LOSARTAN POTASS50 M1 PO (08:33)
[2024-01-07] MEDS ORDERED: VITAMIN D350 MCG PO (08:33)
[2024-01-07 12:00] VITALS: BP 138/48
[2024-01-07 20:00] VITALS: BP 160/66
[2024-01-07 23:45] VITALS: BP 172/60
[2024-01-08] VITALS: BP 176/55
[2024-01-08 08:00] VITALS: BP 140/60
[2024-01-08 12:00] VITALS: BP 160/70
== END 2024-01-08 18:33 | DRG 482 ==
LOC: ED 08:08 → EDHOLD 09:46 → ICCU 09:46 → EDHOLD 09:48 → ICCU 12:34 → 4E 01-02 20:59
PROVIDERS: Internal Medicine; Orthopaedic Surgery; ADMIT Internal Medicine; ATTEND Internal Medicine
PROC: 0QS706Z Reposition Left Upper Femur with Intramedullary Internal Fixation Device, Open Approach (ICD-10-PCS; principal; 2023-12-31)
PROC: 3E0T3BZ Introduction of Anesthetic Agent into Peripheral Nerves and Plexi, Percutaneous Approach (ICD-10-PCS; 2023-12-31)
PROC: 3E0T33Z Introduction of Anti-inflammatory into Peripheral Nerves and Plexi, Percutaneous Approach (ICD-10-PCS; 2023-12-31)
DX: S72.142A Displaced intertrochanteric fracture of left femur, initial encounter for closed fracture (principal); G30.1 Alzheimer's disease with late onset; F02.80 Dementia in other diseases classified elsewhere, unspecified severity, without behavioral disturbance, psychotic disturbance, mood disturbance, and anxiety; R62.7 Adult failure to thrive; I10 Essential (primary) hypertension; F41.1 Generalized anxiety disorder; J44.9 Chronic obstructive pulmonary disease, unspecified; E78.2 Mixed hyperlipidemia; Z66 Do not resuscitate; Z51.5 Encounter for palliative care; Z88.2 Allergy status to sulfonamides; Z90.49 Acquired absence of other specified parts of digestive tract; Z80.1 Family history of malignant neoplasm of trachea, bronchus and lung; Z68.20 Body mass index [BMI] 20.0-20.9, adult